=== PATIENT | female | born 1960 | race Caucasian/White ===

== ENCOUNTER 2016-03-29 14:29 | Outpatient (CLI) | payer OTHER | END 2016-03-29 14:30 | disposition home or self-care (01) | DX: G47.30 Sleep apnea, unspecified (principal); G47.8 Other sleep disorders; G47.10 Hypersomnia, unspecified; R06.83 Snoring; R51 Headache ==

== ENCOUNTER 2016-05-04 19:19 | Outpatient (CLI) | payer OTHER | END 2016-05-04 19:20 | disposition home or self-care (01) | DX: Z53.9 Procedure and treatment not carried out, unspecified reason (principal) ==

== ENCOUNTER 2016-06-09 23:18 | Outpatient (CLI) | payer OTHER | END 2016-06-09 23:19 | disposition home or self-care (01) | DX: G47.33 Obstructive sleep apnea (adult) (pediatric) (principal); I48.1 Persistent atrial fibrillation ==

== ENCOUNTER 2016-06-22 11:06 | Outpatient (CLI) | payer OTHER | END 2016-06-22 11:07 | disposition home or self-care (01) | DX: G47.33 Obstructive sleep apnea (adult) (pediatric) (principal); I48.91 Unspecified atrial fibrillation ==

== ENCOUNTER 2016-08-12 13:41 | Outpatient (CLI) | payer OTHER | END 2016-08-12 13:42 | disposition home or self-care (01) | LOC: SC 13:41 | PROVIDERS: ATTEND Nurse Practitioner Family | DX: G47.33 Obstructive sleep apnea (adult) (pediatric) (principal); I48.91 Unspecified atrial fibrillation | CPT/HCPCS: 99212; 99215 ==

== ENCOUNTER 2016-11-17 13:40 | Outpatient (CLI) | payer OTHER | END 2016-11-17 13:41 | disposition home or self-care (01) | LOC: SC 13:40 | PROVIDERS: ATTEND Nurse Practitioner Family | DX: G47.33 Obstructive sleep apnea (adult) (pediatric) (principal) | CPT/HCPCS: 99212; 99214 ==

== ENCOUNTER 2017-06-13 13:10 | Outpatient (CLI) | payer OTHER | END 2017-06-13 13:11 | disposition home or self-care (01) | LOC: SC 13:10 | PROVIDERS: ATTEND Nurse Practitioner Family | DX: G47.33 Obstructive sleep apnea (adult) (pediatric) (principal) | CPT/HCPCS: 99212; 99214 ==

== ENCOUNTER 2018-12-13 13:23 | Outpatient (CLI) | payer OTHER ==
[2018-12-13 14:22] VITALS: BP 100/60
--- NOTE | 2018-12-13 14:22 | SLEEP CARE CONSULTATION ---
Information from patient questionnaire entered by Jonna Almazan. I have reviewed and concur with the information entered by Jonna Almazan. This document represents the service I personally performed and the decisions made by me, Kimber Raygoza, RN, MSN, ENROLLMENT MANAGEMENT DIRECTOR. History of Present Illness Previous diagnosis: Moderate, Obstructive Sleep Apnea-Hypopnea Syndrome AHI: 20.8 Reason for CPAP/BiPAP follow up: annual Equipment type: CPAP Equipment obtained from: [facility] (having difficulty getting supplies, headgear wearing out etc, would like to transfer) Mask style: Nasal (Dreamwear) Mask brand: Respironics Backup mask available: No (when replaced, she is to keep as a spare) Last cushion change: 2 plus months ago Prior sleep studies: Yes Year and Where: 2016 [facility] CPAP Compliance Data - Data Reviewed with Patient Average duration of nightly device use: 8h 17m Compliance rate %: 94.4 Current pressure setting (cmH2O): 13-13 Humidity settin Heated hose settin Average residual AHI: 1.4 Subjective Missed days of use due to: reports: illness Patient concerns: reports: mask leak noise (headgear wearing out ), dry mouth, nose, throat (rare). denies: aerophagia, mask discomfort, air blowing in eyes, condensation in mask/hose, nasal congestion, epistaxis Observed to snore while using device: No Current pressure setting perceived as: comfortable On therapy, patient: reports: sleeping better, awakening more refreshed, being more awake and alert during the day, more rested overall. denies: drowsiness while driving Initial [place] Sleepiness Scale score: 19 Current [place] Sleepiness Scale score: 8 Allergies and Home Medications Known drug allergies: No Home medication list reviewed: Yes Allergy and home medication list: ` Medication Name (generic/name brand) Strength & Dosage Losartan daily Aspirin daily Spironolactone daily Fish Oil daily Milk thistle daily Review of Systems Review of systems same as previous: Yes Physical Exam Blood Pressure: 100/60 Cuff size: long Heart Rate: 53 O2 Saturation: 96 Height: 5 ft 5 in Weight: 276 lb Weight change since last visit: gained 13 pounds but lost 10 pounds past 6 months Body Mass Index: 45.9 BMI Classification: Obesity Class 3 Impression and Plan 1. Obstructive Sleep Apnea-Hypopnea Syndrome, moderate, with good treatment compliance and good apnea control. On CPAP therapy, the patient has better sleep quality and is more rested overall. Since she has gained some weight since last seen, we discussed how continued weight gain could increase her apnea and CPAP pressure requirements. She now is morbidly obese which can also increase health risks. Patient has started losing weight and plans on continuing. She has seen a document manager in the past. Thus she was informed how her pressure requirements may reduce with significant weight loss. Symptoms for pressure adjustment discussed to contact this office. For her supply concerns, she would like to transfer. Our staff will inform her of her DME options. I will make a DWO for transfer. She has mild drooling that continues. At first a chinstrap was discussed and declined. I then explained that sometimes drooling is in response to oral dryness so patient advised to increase humidity to 5 and reduce heated hose if needed. Patient's apnea severity and rationale for treatment to reduce apnea, improve sleep quality and reduce cardiovascular and cerebrovascular events was reviewed. I also reviewed the benefit of consistent device use of CPAP for hypertension. * Continue CPAP pressure at 13 cmH2O * Adjust humidity and heated hose * Notify me if snoring with mask or feeling that the pressure is too much or too little * Continue to lose weight * Transfer to new DME. * Return for follow up in 1 year , or sooner if concerns arise I spent 100% of this 28 minute visit face to face with the patient with greater than 50% of this was spent time counseling the patient and coordination of care.
== END 2018-12-13 13:24 | disposition home or self-care (01) ==
LOC: SC 13:23
PROVIDERS: ATTEND Nurse Practitioner Family
DX: G47.33 Obstructive sleep apnea (adult) (pediatric) (principal); E66.9 Obesity, unspecified; Z68.42 Body mass index [BMI] 45.0-49.9, adult
CPT/HCPCS: 99212; 99214

== ENCOUNTER 2020-07-15 10:38 | Outpatient (CLI) | payer OTHER ==
--- NOTE | 2020-07-18 09:35 | Mammography Report ---
BILATERAL DIGITAL SCREENING MAMMOGRAM 3D/2D: 07/15/2020 CLINICAL: Routine screening. Comparison is made to exams dated: 07/04/2018 mammogram, 05/16/2017 mammogram, 04/05/2016 mammogram, and 12/19/2014 mammogram - [facility] [[email or web address] There are scattered fibroglandular elements in both anum sts. No significant masses, calcifications, or other findings are seen in either breast. There has been no significant interval change. IMPRESSION: NEGATIVE There is no mammographic evidence of malignancy. A 1 year screening mammogram is recommended. This exam was interpreted at Station ID: [id number]. NOTE: For mammograms, a report in lay terms will be sent to the patient. Approximately 15% of breast malignancies will not be visualized mammographically. In the management of a palpable breast mass, a negative mammogram must not discourage biopsy of a clinically suspicious lesion. Electronically Signed By: Mykel Brower M.D. ddp/penrad:07/17/2020 15:14:58 ACR BI-RADS Category 1: Negative 3341F PARENCHYMAL PATTERN: (A) - The breast(s) demonstrate(s) scattered fibroglandular densities. BI-RADS CATEGORY: (1) - 1 RECOMMENDATION: (ANNUAL) - Recommend routine annual screening mammography. [id number] 1 year screening LATERALITY: (B)
== END 2020-07-15 10:39 | disposition home or self-care (01) ==
LOC: DI.N 10:38
DX: Z12.31 Encounter for screening mammogram for malignant neoplasm of breast (principal)

== ENCOUNTER 2021-01-27 14:36 | Outpatient (CLI) | payer OTHER ==
--- NOTE | 2021-01-27 16:40 | XRAY Report ---
PROCEDURE: Wrist 3 View RT INDICATIONS: R WRIST PX TECHNIQUE: 4 views of the wrist were acquired. COMPARISON: None FINDINGS: Bones: Impacted and slightly comminuted intra-articular fracture of distal radius is seen with slight overlapping of fracture site and fracture line extending to radiocarpal joint space. No other fractu re or dislocation is seen. Wrist joint osteoarthritic changes are noted. No suspicious bony lesions. Scaphoid view: Scaphoid is grossly intact. Soft tissues: No suspicious soft tissue calcifications. IMPRESSION: Impacted and slightly comminuted intra-articular distal radial fracture. No other fracture or disloca tion. Wrist joint osteoarthritis. Reviewed by: Syed Bliss MD on 01/27/2021 4:39 PM PST Approved by: Syed Bliss MD on 01/27/2021 4:39 PM PST Station ID: [id number]
== END 2021-01-27 23:59 | disposition home or self-care (01) ==
LOC: DI.N 14:36
PROVIDERS: ATTEND Family Medicine
DX: S52.571A Other intraarticular fracture of lower end of right radius, initial encounter for closed fracture (principal)

== ENCOUNTER 2021-02-25 08:54 | Outpatient (CLI) | payer OTHER | END 2021-02-25 08:55 | disposition home or self-care (01) | LOC: DI 08:54 | PROVIDERS: ATTEND Internal Medicine | DX: I48.91 Unspecified atrial fibrillation (principal); I51.7 Cardiomegaly | CPT/HCPCS: 93306 ==

== ENCOUNTER 2021-02-26 09:15 | Outpatient (CLI) | payer OTHER ==
--- NOTE | 2021-02-26 11:39 | XRAY Report ---
PROCEDURE: Wrist 3 View RT INDICATIONS: COLLES FX OF R RADIUS TECHNIQUE: 3 views of the wrist were acquired. COMPARISON: None FINDINGS: Bones: Impacted comminuted fracture of the distal radius with extension to the articular surface demo nstrates healing since the prior study on 01/27/2021. Degenerative changes of the lunate bone are not ed. No change in alignment compared to the prior study. Soft tissues: No suspicious soft tissue calcifications. IMPRESSION: Impacted and comminuted fracture of the right distal radius involving the articular surf edith demonstrating interval healing. Reviewed by: Tj Guajardo on 02/26/2021 11:38 AM [facility] Approved by: Tj Guajardo on 02/26/2021 11:38 AM PST Station ID: [id number]
== END 2021-02-26 23:59 | disposition home or self-care (01) ==
LOC: DI.N 09:15
PROVIDERS: ATTEND Orthopaedic Surgery
DX: S52.531A Colles' fracture of right radius, initial encounter for closed fracture (principal)

== ENCOUNTER 2021-03-24 10:25 | Outpatient (CLI) | payer OTHER ==
--- NOTE | 2021-03-24 14:39 | XRAY Report ---
PROCEDURE: Wrist 3 View RT INDICATIONS: WRIST FX TECHNIQUE: 3 views of the wrist were acquired. COMPARISON: 02/26/2021 FINDINGS: Continued further healing of impacted distal radius fracture involving the articular surface. Remaini ng bones intact. Osteophytic changes are demonstrated. IMPRESSION: Continued further healing of impacted distal radius fracture involving the articular surface. Reviewed by: Dev Ac MD on 03/24/2021 1:38 PM [facility] Approved by: Dev Ac MD on 03/24/2021 1:38 PM [facility] Station ID: [id number]
== END 2021-03-24 10:26 | disposition home or self-care (01) ==
LOC: DI.WOS 10:25
PROVIDERS: ATTEND Orthopaedic Surgery
DX: S52.531D Colles' fracture of right radius, subsequent encounter for closed fracture with routine healing (principal)

== ENCOUNTER 2023-05-23 14:28 | Outpatient (CLI) | payer OTHER ==
[2023-05-23] MEDS: ALBUTEROL 1 PUFF INH STA (17:35)
== END 2023-05-23 14:29 | disposition home or self-care (01) ==
LOC: RT 14:28
PROVIDERS: ATTEND Nurse Practitioner Family
DX: R06.00 Dyspnea, unspecified (principal); Z87.891 Personal history of nicotine dependence
CPT/HCPCS: 94060; 94729

== ENCOUNTER 2023-07-19 11:00 | Outpatient (CLI) | payer OTHER ==
--- NOTE | 2023-07-19 11:49 | Sleep Patient Instructions ---
Sleep Center Visit Summary - Patient Visit Information Reason for Visit: Initial consultation to re-establish care - Patient Instructions Additional Instructions: You will continue with CPAP therapy with pressure set at 13 cmH2O. A supply prescription will be updated with your DME. We encourage you to continue to try to lose weight. Please follow up with the sleep care office in 1 year. - Clinic Information Contact: [facility] [address] [place] [address] [email or web address] T: [phone]
--- NOTE | 2023-07-19 11:54 | SLEEP CARE CONSULTATION ---
Information from patient questionnaire entered by Ai Acosta. I have reviewed and concur with the information entered by Ai Acosta. This document represents the service I personally performed and the decisions made by me, Iesha Maradiaga ARNP. History of Present Illness Service Date and Time: 07/19/2023 1100 Reason for Visit: New patient, Previously diagnosed sleep apnea, Re-establish care Usual bedtime: 2300 Snores at night: Yes Observed to quit breathing while asleep: Yes Sleeps alone due to snoring: Yes Reasons for waking at night: reports: Bathroom Toss, Turn, or Twitch while sleeping: Yes Recalls having dreams: Yes Usually gets out of bed at: 0900 Feels refreshed in the morning: No Morning headache: No Sleepy or fatigued during the day: Yes Ever fallen asleep while driving: No Takes day naps: Yes Dreams during day naps: No Prior sleep studies: Yes Year and Where: 2016 [facility] Additional HPI information: HAZEL ELLIS was previously diagnosed to have moderate, AHI 20.8, obstructive sleep apnea-hypopnea syndrome as seen in [facility] sleep study dated 06/09/2016 and comes in today to re-establish care for CPAP therapy. - Parasomnia Symptoms Ever been unable to move upon waking from sleep: No Walks in sleep: No Talks in sleep: Yes Ever acted out dreams in sleep: No Ever felt weak in the knees when startled or emotional: No Bothered by creepy, crawly, restless sensations in legs: No Problems with memory or concentration: No CPAP Compliance Data - Data Reviewed with Patient Average duration of nightly device use: 7 hours 56 minutes Compliance rate %: 78.3 (152/180 days used) Current pressure setting (cmH2O): 13 Average residual AHI: 2.7 Central apnea: 0.4 Obstructive apnea: 0.9 Hypopnea: 1.4 Average large leak: 1 mins 33 secs Compliance data discussion: She has a Dreamstation 2. She gets her supplies from [employer]. She is using a Dreamwear nasal cushion, medium. Subjective Missed days of use due to: reports: illness (sleeping in recliner) Patient concerns: reports: mask leak noise (occasionally). denies: aerophagia, mask discomfort, air blowing in eyes, condensation in mask/hose, nasal congestion, dry mouth, nose, throat, epistaxis Observed to snore while using device: No Current pressure setting perceived as: comfortable On therapy, patient: reports: sleeping better, awakening more refreshed, being more awake and alert during the day, more rested overall. 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 Patient is and lives in [place]. Have you smoked in the past 12 months: Yes Cigarettes per day (20/pack): 20 (trying to quit) Years of smokin Smoking Pack Years: 46.0 Alcohol use: Yes Alcohol amount and frequency: 3 DRINKS 3 X A WEEK; none since May Caffeine use: Yes Caffeine amount and frequency: 3 CUPS COFFEE MORNINGS Family History Family history of sleep disordered breathing: Yes Family Hx Sleep Apnea: Sibling: Snoring, Sleep apnea - Treated Allergies and Home Medications Known drug allergies: Yes (as listed) Drug allergies reviewed: Yes Home medication list reviewed: Yes (as listed) Allergy and home medication list: Allergies codeine Adverse Reaction (Intermediate, Verified 07/14/23 09:01) Medications: Milk Thistle Fish oil Magnesium Eliquis 5 mg bid Spirolactone 25 mg daily Metoprolol 25 mg bid Albuterol inhaler, prn Review of Systems Weight gain over past 5 years: 25 Cardiovascular: reports: chest pain, irregular heart rate or pulse, leg or foot swelling Respiratory: reports: shortness of breath, wheeze Neurological: reports: head trauma Psychiatric: reports: anxiety, depression, claustrophobia Ear/Nose/Throat: reports: dry mouth/throat, wisdom teeth removed. denies: tonsillectomy Endocrine: reports: sluggishness Musculoskeletal: reports: joint pain Physical Exam Vital signs obtained and entered by: AI Jean-Baptiste MA Blood Pressure: 124/84 (LEFT ARM) Cuff size: long Heart Rate: 80 O2 Saturation: 96 Height: 5 ft 5 in Weight: 301 lb 6.4 oz Weight change since last visit: 25 lb gain Body Mass Index: 50.1 BMI Classification: Morbidly Obese Neck circumference: 18 Heart: regular rate and rhythm Lungs: clear bilaterally Impression and Plan 1. Obstructive Sleep Apnea-Hypopnea Syndrome, moderate, with good treatment compliance and good apnea control. On CPAP therapy, the patient has better sleep quality and is more rested overall. She received her DreamStation 2 a couple of years ago. Patient has significant improvement of their sleep apnea and is satisfied with current CPAP therapy. Patient denies problems with oral dryness, nasal congestion, epistaxis, skin irritation or aerophagia. Patient's apnea severity and rationale for treatment to reduce apnea, improve sleep quality and reduce cardiovascular and cerebrovascular events was reviewed. I also reviewed the benefit of consistent device use of CPAP for hypertension. 2. Obesity, unspecified. Currently patients BMI is 50.1. Obesity increases the risk of apnea, CPAP pressure requirements and overall health risks especially cardiovascular and diabetes. Thus patient is advised to lose weight. * Continue auto CPAP pressure at 13 cmH2O * Update supply prescription * Notify me if snoring with mask or feeling that the pressure is too much or too little * Attempt to lose weight * Call this office if any problems using CPAP * Return for follow up in 12 months, or sooner if concerns arise Counseling Topics: Spare mask, Weight loss health impact Prescriptions: Device supplies Follow up with Sleep Care in: 1 year Visit Type: In Office Time Spent with Patient (minutes): 37 Provider Statement: I spent 100% of the Face to Face Visit with the patient with greater than 50% spent counseling the patient and coordination of care.
[2023-07-19 11:57] VITALS: BP 124/84; O2SAT 96
== END 2023-07-19 11:01 | disposition home or self-care (01) ==
LOC: SC 11:00
PROVIDERS: ATTEND Nurse Practitioner Family
DX: G47.33 Obstructive sleep apnea (adult) (pediatric) (principal); E66.01 Morbid (severe) obesity due to excess calories; Z68.43 Body mass index [BMI] 50.0-59.9, adult; F17.210 Nicotine dependence, cigarettes, uncomplicated
CPT/HCPCS: 99203; 99212